=== PATIENT | male | born 1985 | race Caucasian/White ===

== ENCOUNTER 2021-06-20 07:55 | Emergency (ER) | payer SELFPAY ==
[~2021-06-20] VITALS: Wt 90.7 kg
[~2021-06-20 07:55] MED LIST: TRAMADOL HCL50 MG PO
[2021-06-20] MEDS ORDERED: DECADRON6 M1 PO (08:54)
[2021-06-20] MEDS ORDERED: PEPCID AC10 M2 PO (08:54)
== END 2021-06-20 09:10 | disposition home or self-care (01) ==
LOC: ED 07:55
DX: R43.8 Other disturbances of smell and taste (principal); Z20.822 Contact with and (suspected) exposure to COVID-19

== ENCOUNTER 2024-04-18 21:37 | Emergency (ER) | payer SELFPAY ==
[~2024-04-18] VITALS: Ht 172.7 cm; Wt 86.2 kg
[~2024-04-18 21:37] MED LIST changes: +DECADRON6 M1 PO; +PEPCID AC10 M2 PO
[2024-04-18 22:38] LABS: BASO # 0.1 10*3/uL (0.0-0.1); BASO % 0.5 % (0.0-1.0); EOS # 0.1 10*3/uL (0.0-0.4); EOS % 1.4 % (1.0-4.0); HEMATOCRIT 46.3 % (42.0-52.0); LYMPH # 3.6 10*3/uL (1.3-4.4); LYMPH % 38.6 % (27.0-41.0); MEAN CELL VOLUME 83.9 fl (80.0-94.0); MEAN CORPUSCULAR HGB CONC 34.6 g/dl (33.0-37.0); MEAN PLATELET VOLUME 10.5 fl (9.6-12.3); MONO # 0.7 10*3/uL (0.1-1.0); MONO % 7.5 % (3.0-9.0); NEUT # 4.8 10*3/uL (2.3-7.9); NEUT % 51.7 % (47.0-73.0); PLATELET COUNT AUTOMATED 245 10*3/uL (130-400); RED BLOOD COUNT 5.52 10*6/uL (4.50-5.90); RED CELL DISTRI WIDTH 12.7 % (0-14.5); WHITE BLOOD COUNT 9.2 10*3/uL (4.8-10.8)
[2024-04-18 22:56] LABS: ALKALINE PHOSPHATASE 81 U/L (46-116); BUN 11 mg/dl (9-23); CHLORIDE 104 mmol/L (98-107); LIPASE 42 U/L (12-53); POTASSIUM 3.6 mmol/L (3.4-5.1); SGPT/ALT 46 U/L (5-49)
[2024-04-19] MEDS ORDERED: Ketorolac Tromethamine 60 MG/2 ML VIAL IM ONE (00:15)
== END 2024-04-19 00:23 | disposition home or self-care (01) ==
LOC: ED 21:37
PROVIDERS: Internal Medicine
DX: R10.11 Right upper quadrant pain (principal); K82.8 Other specified diseases of gallbladder

== ENCOUNTER → 2024-04-19 | Outpatient (CLI) | payer SELFPAY | END | disposition home or self-care (01) | LOC: RESCLI 15:47 | PROVIDERS: ATTEND Internal Medicine | DX: R10.11 Right upper quadrant pain (principal) ==

== ENCOUNTER → 2024-04-29 | Outpatient (CLI) | payer SELFPAY | END | disposition home or self-care (01) | LOC: US 07:30 | PROVIDERS: ATTEND Internal Medicine | DX: R10.11 Right upper quadrant pain (principal); K76.0 Fatty (change of) liver, not elsewhere classified; K82.4 Cholesterolosis of gallbladder ==

== ENCOUNTER → 2025-05-30 | Outpatient (CLI) | payer OTHER | END | disposition home or self-care (01) | LOC: US 09:30 | PROVIDERS: ATTEND Family Medicine | DX: K76.0 Fatty (change of) liver, not elsewhere classified (principal); R10.84 Generalized abdominal pain; R10.20 Pelvic and perineal pain unspecified side ==

== ENCOUNTER → 2025-06-15 | Outpatient (CLI) | payer OTHER ==
[~2025-06-15] MED LIST changes: +IOHEXOL 300 MG/ML 100 ML VIAL IV ONE; +IOHEXOL 300 MG/ML 100 ML VIAL ONE
== END | disposition home or self-care (01) ==
LOC: CT 02:35
PROVIDERS: ATTEND Family Medicine
DX: R10.84 Generalized abdominal pain (principal); R10.23 Pelvic and perineal pain bilateral